=== PATIENT | male | born 2005 | race Caucasian/White ===

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

== ENCOUNTER 2024-02-21 14:00 | Emergency (ER) | payer MEDICAID ==
[~2024-02-21] VITALS: Ht 170.2 cm; Wt 68.2 kg
[2024-02-21 14:03] VITALS: BP 114/68; PULSE 99; RESP 18; TEMP 100.5; O2SAT 99
== END 2024-02-21 17:00 | disposition left against medical advice (07) ==
LOC: ER 14:00
DX: J10.1 Influenza due to other identified influenza virus with other respiratory manifestations (principal); R50.9 Fever, unspecified; R11.10 Vomiting, unspecified; R51.9 Headache, unspecified; R05.9 Cough, unspecified; Z20.822 Contact with and (suspected) exposure to COVID-19
CPT/HCPCS: 36415; 87502; 87503; 87811; 99283

== ENCOUNTER 2024-04-02 17:47 | Emergency (ER) | payer MEDICAID ==
[~2024-04-02] VITALS: Ht 170.2 cm; Wt 68.0 kg
[2024-04-02] MEDS ORDERED: iohexol 300mg/ml 100ml inj. ONE (18:07)
[2024-04-02] MEDS: ondansetron/PF 4mg/2ml inj IV ONE (18:29)
[2024-04-02] MEDS: morphine 4 MG/ML inj SYRINge IV ONE (18:30)
[2024-04-02] MEDS: fentaNYL/PF 50MCG/1 ML 2ML syringe IV ONE (19:24)
[2024-04-02] MEDS: acetaminophen 1,000mg/100ml IV 100 ML IV ONE (19:25)
[2024-04-02 20:12] VITALS: BP 128/73; PULSE 84; RESP 16; TEMP 97.8; O2SAT 98
[2024-04-02] MEDS ORDERED: HYDR-3965 PO (20:22)
[2024-04-02] MEDS ORDERED: IBUP-1984 PO (20:22)
[2024-04-02] MEDS ORDERED: ONDA-245 PO (20:22)
[2024-04-02] MEDS: ketorolac trometh 15mg/ml vial 15 MG/ML ML IV ONE (20:24)
[2024-04-02] MEDS: oxyCODONE IR 5mg (immed. release) tablet PO ONE (20:25)
[2024-04-08] MEDS ORDERED: HYDR-3964 PO (11:32)
[2024-04-08] MEDS ORDERED: IBUP-1984 PO (11:32)
== END 2024-04-02 21:02 | disposition home or self-care (01) ==
LOC: ER 17:48
DX: S42.001A Fracture of unspecified part of right clavicle, initial encounter for closed fracture (principal); Z79.1 Long term (current) use of non-steroidal anti-inflammatories (NSAID); Z79.899 Other long term (current) drug therapy; V86.56XA Driver of dirt bike or motor/cross bike injured in nontraffic accident, initial encounter; Y93.89 Activity, other specified; Y92.89 Other specified places as the place of occurrence of the external cause; Y99.8 Other external cause status
CPT/HCPCS: 29105; 70450; 71260; 72125; 74177; 93005; 96365; 96375; 99285; J0131; J1885; J2270; J2405; J3010; L0172; Q9967; A4565

== ENCOUNTER 2024-04-10 12:38 | Day surgery (SDC) | payer MEDICAID ==
[2024-04-08 11:28] LABS: BASOPHILS % (AUTO) 0.6 % (0-1); EOSINOPHILS # (AUTO) 0.2 X10'3 (0-0.9); LYMPHOCYTES # (AUTO) 1.4 X10'3 (1.1-4.8); MEAN CORPUSCULAR HEMOGLOBIN 28.7 PG (27.0-31.0); MEAN CORPUSCULAR HGB CONC 33.5 g/dL (33.0-36.5); MEAN CORPUSCULAR VOLUME 85.7 FL (78-98); MONOCYTES # (AUTO) 0.9 X10'3 (0-0.9); NEUTROPHILS # (AUTO) 5.8 X10'3 (1.8-7.7); NEUTROPHILS % (AUTO) 68.4 % (42-75); PRE OP HEMATOCRIT 44.8 % (42.0-52.0); PRE OP PLATELET COUNT 258 X10'3 (140-440); PRE OP WHITE BLOOD COUNT 8.4 10'3 (4.8-10.8); RED BLOOD COUNT 5.22 X10'6 (4.70-6.10); RED CELL DISTRIBUTION WIDTH 12.9 % (11.5-14.5)
[~2024-04-10] VITALS: Ht 170.2 cm; Wt 70.0 kg
[~2024-04-10 12:38] MED LIST: HYDR-3964 PO; IBUP-1984 PO; enalaprilat 1.25mg/ml 2ml vial IV PRN; labetalol 20mg/4ml (5mg/ml) syringe IV PRN; meperidine/PF 25mg/ml syringe IV PRN; morphine 2 MG/ML inj. syringe IV PRN; morphine 4 MG/ML inj SYRINge IV PRN; ondansetron/PF 4mg/2ml inj IV PRN; proCHLORperazine 10 MG/2 ml inj IV PRN; ringers solution, lacted 1,000 ML IV SCH
[2024-04-10 12:45] VITALS: BP 131/72; PULSE 65; RESP 16; TEMP 98.7; O2SAT 98
[2024-04-10] MEDS: ceFAZolin 2gm in dextrose, iso 50 ML IV ONE (13:09)
[2024-04-10] MEDS: famotidine 20mg tablet PO ONE (13:10)
[2024-04-10] MEDS: vancomycin/NS 1 GM ADD-VANTAGE 250 ML X 1 DOSE IV ONE (13:10)
[2024-04-10] MEDS: ringers solution, lacted 1,000 ML IV SCH (13:10)
[2024-04-10] MEDS ORDERED: proCHLORperazine 10 MG/2 ml inj IV PRN (15:10)
[2024-04-10] MEDS ORDERED: ondansetron/PF 4mg/2ml inj IV PRN (15:10)
[2024-04-10] MEDS ORDERED: morphine 4 MG/ML inj SYRINge IV PRN (15:10)
[2024-04-10] MEDS ORDERED: ringers solution, lacted 1,000 ML IV SCH (15:10)
[2024-04-10] MEDS ORDERED: labetalol 20mg/4ml (5mg/ml) syringe IV PRN (15:10)
[2024-04-10] MEDS ORDERED: morphine 2 MG/ML inj. syringe IV PRN (15:10)
[2024-04-10] MEDS ORDERED: enalaprilat 1.25mg/ml 2ml vial IV PRN (15:10)
[2024-04-10] MEDS ORDERED: meperidine/PF 25mg/ml syringe IV PRN ×3 (15:10)
== END 2024-04-10 15:40 | disposition home or self-care (01) ==
LOC: PAS 12:38
PROVIDERS: ATTEND Orthopaedic Surgery
DX: S42.001A Fracture of unspecified part of right clavicle, initial encounter for closed fracture (principal); Z53.8 Procedure and treatment not carried out for other reasons; X58.XXXA Exposure to other specified factors, initial encounter; Y93.89 Activity, other specified; Y92.89 Other specified places as the place of occurrence of the external cause; Y99.8 Other external cause status; Z88.8 Allergy status to other drugs, medicaments and biological substances; Z79.899 Other long term (current) drug therapy
CPT/HCPCS: 36415; 82948; 85025; J0690; J3370; J7120

== ENCOUNTER 2024-04-12 06:06 | Day surgery (SDC) | payer MEDICAID ==
[~2024-04-12] VITALS: Ht 170.2 cm; Wt 70.4 kg
[2024-04-12] VITALS (12 sets, daily range): BP systolic 110–131; BP diastolic 56–76; PULSE 69–109; RESP 12–18; TEMP 97.4; O2SAT 94–99
[~2024-04-12 06:06] MED LIST changes: -enalaprilat 1.25mg/ml 2ml vial IV PRN; -labetalol 20mg/4ml (5mg/ml) syringe IV PRN; -meperidine/PF 25mg/ml syringe IV PRN; -morphine 2 MG/ML inj. syringe IV PRN; -morphine 4 MG/ML inj SYRINge IV PRN; -ondansetron/PF 4mg/2ml inj IV PRN; -proCHLORperazine 10 MG/2 ml inj IV PRN; -ringers solution, lacted 1,000 ML IV SCH
[2024-04-12] MEDS: famotidine 20mg tablet PO ONE (06:25)
[2024-04-12] MEDS: vancomycin/NS 1 GM ADD-VANTAGE 250 ML X 1 DOSE IV ONE (06:25)
[2024-04-12] MEDS: ringers solution, lacted 1,000 ML IV SCH (06:26)
[2024-04-12] MEDS: ceFAZolin 2gm in dextrose, iso 50 ML IV ONE (06:26)
[2024-04-12] MEDS ORDERED: BUPIVAcaine 2.5mg/ml inj 50ml vial (contains preservative) ONE (06:56)
[2024-04-12] MEDS: BUPIVAcaine 0.5% inj/PF 30 ml vial IJ ONE (08:24)
[2024-04-12] MEDS ORDERED: LIDOcaine 2% (20mg/ml) 5ml vial ONE (08:54)
[2024-04-12] MEDS ORDERED: dexamethasone sod phosphate 4mg/ml inj. ONE (08:54)
[2024-04-12] MEDS ORDERED: propofol inj 20 ML IV ONE (08:54)
[2024-04-12] MEDS ORDERED: midazolam 1 mg/ML 2ml injection ONE (08:54)
[2024-04-12] MEDS ORDERED: fentaNYL/PF 50MCG/1 ML 2ML syringe ONE ×3 (08:54→11:11)
[2024-04-12] MEDS ORDERED: ondansetron/PF 4mg/2ml inj ONE (08:54)
[2024-04-12] MEDS ORDERED: ROPIVAcaine 0.5% (5mg/ml) 30ml vial ONE (08:55)
[2024-04-12] MEDS ORDERED: sevoflurane 250ml liquid IH ONE (09:01)
[2024-04-12] MEDS ORDERED: hydrALAZINE 20mg/ml inj. IV PRN (09:05)
[2024-04-12] MEDS ORDERED: morphine 2 MG/ML inj. syringe IV PRN (09:05)
[2024-04-12] MEDS ORDERED: labetalol 20mg/4ml (5mg/ml) syringe IV PRN (09:05)
[2024-04-12] MEDS ORDERED: fentaNYL/PF 50MCG/1 ML 2ML syringe IV PRN ×2 (09:05)
[2024-04-12] MEDS ORDERED: ondansetron/PF 4mg/2ml inj IV PRN (09:05)
[2024-04-12] MEDS ORDERED: ringers solution, lacted 1,000 ML IV SCH (09:05)
[2024-04-12] MEDS ORDERED: acetaminophen 1,000mg/100ml IV 100 ML IV ONE (09:31)
[2024-04-12] MEDS ORDERED: ketorolac trometh 30MG/ML vial 30 MG/ML VIAL ONE (11:07)
[2024-04-12] MEDS ORDERED: vancomycin 1,000mg inj ONE (11:16)
[2024-04-12] MEDS: morphine 4 MG/ML inj SYRINge IV PRN (12:13)
[2024-04-12] MEDS: HYDROcodone/acetaminophen 10/325mg tab PO ONE (13:15)
== END 2024-04-12 13:27 | disposition home or self-care (01) ==
LOC: OR 06:06
PROVIDERS: ATTEND Orthopaedic Surgery
DX: S42.021A Displaced fracture of shaft of right clavicle, initial encounter for closed fracture (principal); X58.XXXA Exposure to other specified factors, initial encounter; Y93.89 Activity, other specified; Y92.89 Other specified places as the place of occurrence of the external cause; Y99.8 Other external cause status; Z79.899 Other long term (current) drug therapy
CPT/HCPCS: 23515; 64999; 73000; 82948; C1713; J0131; J0690; J1100; J1885; J2003; J2250; J2270; J2405; J2704; J2795; J3010; J3370; J3490; J7030; J7120; Z7506; Z7508; Z7512; 76000; A4215; A4565; A4618; A7000; J0665